=== PATIENT | male | born 1965 | race African-American/Black ===

== ENCOUNTER 2016-09-09 12:52 | Emergency (ER) | payer BC ==
--- NOTE | ~2016-09-09 | CR63 ---
[facility]. [facility] A Service of [facility] & [facility] RADIOLOGY TEXT RESULTS PATIENT: DIEUDONNE PALUMBO LOCATION: SED : 61 UNIT #: [id number] AGE: [address]: Jodie Snow APRN SEX: M ORDER DR: [id number] [place] [id number] E MR#: [id number] Acc #: [id number] NAME: DIEUDONNE PALUMBO : 1965 SEX: M STUDY DATE/TIME: 09/09/2016 13:00 UNIT: SED ROOM: STUDY DESCRIPTION: CR Chest 2 View Attending Physician: Jodie Snow A.P.R.N. Ordering Physician: Jodie Snow A.P.R.N. MEDICAL IMAGING REPORT This report is preliminary unless electronic signature is present. EXAM PA and lateral chest HISTORY Cough for 4 months. Right neck swelling. FINDINGS 2 views of the chest demonstrate the cardiac size and pulmonary vascularity are normal. No infiltrates or effusions. Old healed fractures posterior right seventh and eighth ribs. IMPRESSION No acute findings. No active disease. Lungs are clear. Dictated by... James Bryan M.D. THIS IS AN ELECTRONICALLY VERIFIED REPORT James Bryan M.D. at 09/10/2016 1:52 PM DFL/davi TD: 09/10/2016 04:43 JOB #: [id number] MEDICAL IMAGING REPORT
== END 2016-09-09 14:23 | disposition home or self-care (01) ==
LOC: SED 12:52
DX: H66.92 Otitis media, unspecified, left ear (principal); R59.1 Generalized enlarged lymph nodes; J30.9 Allergic rhinitis, unspecified
CPT/HCPCS: 71020; 99283